=== PATIENT | female | born 1965 | race Caucasian/White ===

== ENCOUNTER 2020-10-12 06:28 | Observation (INO) ==
--- NOTE | 2020-10-12 06:41 | ERNOTE ---
<Philly Matute - Last Filed: 10/12/20 09:07> Medical Problem HPI - General Chief Complaint: General Assessment Time Seen by Provider: 10/12/20 06:28 Source: patient, EMS, RN notes reviewed, old records Exam Limitations: physical impairment - Immun/Allergies/Home Medications Immunizations: IMMUNIZATION HX Immunizations Up to Date Yes History of Influenza Vaccine No Hx Pneumococcal Vaccination No Allergies/Adverse Reactions: Allergies No Known Allergies Allergy (Verified 04/27/19 11:09) Home Medications: HOME MEDICATIONS metFORMIN HCL [Metformin HCl] 500 mg PO BID 01/06/19 [Last Taken Unknown] - History of Present History Timing: constant, getting worse Severity: moderate Modifying Factors - (Improves): Present: rest Modifying Factors - (Worsens): Present: movement Review of Systems - Review of Systems Constitutional: Absent: recent illness, fever, chills EYE: Absent: eye pain, eye discharge ENT: Absent: ear pain, nasal drainage, sore throat Respiratory: Present: shortness of breath - chronic with COPD, cough - chronic Cardiology: Absent: chest pain, palpitations Gastrointestinal/Abdominal: Present: nausea. Absent: vomiting, diarrhea, abdominal pain Genitourinary: Absent: frequency, pain, dysuria Musculoskeletal: Absent: back pain, muscle pain Neurological: Absent: anxiety, depressed Psych: Present: anxiety Medical History (Last Reviewed 10/12/20 @ 08:37 by Philly Matute) Influenza vaccination declined by patient (Acute) Onset Date: 10/15/18 Trichomoniasis (Acute) Pain (Acute) Menometrorrhagia (Chronic) Kidney stone (Acute) Heart murmur (Acute) Diabetes (Chronic) Urinary tract infection (Acute) Abnormal x-ray of pelvis (Acute) UTI (urinary tract infection) (Acute) Low back strain (Acute) Abdominal pain (Acute) Uncontrolled diabetes mellitus (Acute) Dysuria (Acute) Surgical History: Surgical History (Last Reviewed 10/12/20 @ 08:37 by Philly Matute) [place] teeth removed (Acute) 1999 History of mandibular surgery (Acute) Onset Date: ~1987 History of dilation and curettage (Acute) Onset Date: 06/27/10 History of cryosurgery (Acute) Onset Date: ~1987 cervix S/P arthroscopic surgery of right knee (Acute) Onset Date: ~1999 S/P repair of ligament of ankle (Acute) Onset Date: ~2006 H/O tubal ligation (Acute) H/O: section (Acute) Family History: Family History (Last Reviewed 10/12/20 @ 08:37 by Philly Matute) Mother Cancer Diabetes Heart murmur Arrhythmia Grandfather CVA (cerebral vascular accident) Social History: (Last Reviewed 10/12/20 @ 08:37 by Philly Matute) Social History: fci: No Marital status: Single household members: none current occupational status: employed current occupation: inpatient services rn Highest level of school completed/degree received: high school graduate Service: No Tobacco: Smoking Status: Current every day smoker Alcohol: alcohol intake: current alcohol intake frequency: a few times a week Substance Use: substance use type: does not use Dietary Habits: caffeine: Yes Exercise: Physical activity type: none Physical activity functional status: normal ROM and activity Physical Exam - Physical Exam General Appearance: Present: wd/wn, alert, no apparent distress Progress - Results and Orders Patient's Lab Results:: I have reviewed the patient's lab results. Results and Orders: Laboratory Results - last 24 hr 10/12/20 10/12/20 10/12/20 07:00 07:00 07:00 WBC 7.9 RBC 4.46 Hgb 14.7 Hct 43.5 MCV 97.5 MCH 33.0 H MCHC 33.8 RDW 12.9 Plt Count 176 MPV 8.6 Immature Gran % (Auto) 1.90 H Immature Gran # (Auto) 0.15 H Neutrophils % 61.0 Lymphocytes % 26.1 Monocytes % 8.3 Eosinophils % 1.6 Basophils % 1.1 H Nucleated RBC % 0.0 Neutrophils # 4.8 Lymphocytes # 2.07 Monocytes # 0.7 Eosinophils # 0.1 Absolute Basophils 0.1 PT 11.4 H INR (Anticoag Therapy) 1.16 H PTT (Vanessa) 25.6 Sodium 133 Plasma Sodium 135 Potassium 4.3 Chloride 99 Carbon Dioxide 29.5 Anion Gap 8.8 BUN 20 Creatinine 0.80 Est GFR (Non-Af Amer) 79 D BUN/Creatinine Ratio 25.0 H Random Glucose 226 H Calcium 8.8 Calcium Adj for Albumin 9.0 Total Bilirubin 0.5 AST 25 ALT 41 Alkaline Phosphatase 87 Total Protein 7.6 Albumin 3.3 L - Vital Signs Patient's Vital Signs:: I have reviewed the patient's vital signs. Vital Signs: Vital Signs 10/12/20 06:28 Temperature 36.3 C Pulse Rate 91 Respiratory Rate 15 Blood Pressure 194/93 H O2 Sat by Pulse Oximetry 98 - EKG EKG #1 EKG: NSR EKG read: Reviewed by me EKG Comments: old septal infarct - Progress/Reassessment Chief Complaint: General Assessment - Transfer of Care Physician Sign Out: Philly Matute Brief History: Patient with onset of left sided weakness last night. Went in to work this AM, was stumbling around, her boss sent her here to be checked out. No acute head bleed on CT scan. Receiving Physician: Romulo Arrington Pending Results: Physician/consult arrival Departure Clinical Impression: CVA (cerebrovascular accident) Qualifiers: CVA mechanism: unspecified Qualified Code(s): I63.9 - Cerebral infarction, unspecified Uncontrolled diabetes mellitus Qualifiers: Diabetes mellitus type: type 2 Glycemic state: with hyperglycemia Qualified Code(s): E11.65 - Type 2 diabetes mellitus with hyperglycemia - Departure Disposition: Still a patient Condition: Fair <Romulo Arrington - Last Filed: 10/12/20 09:37> Medical Problem HPI - Immun/Allergies/Home Medications Immunizations: IMMUNIZATION HX Immunizations Up to Date Yes History of Influenza Vaccine No Hx Pneumococcal Vaccination No Medical History (Last Reviewed 10/12/20 @ 08:37 by Philly Matute) Influenza vaccination declined by patient (Acute) Onset Date: 10/15/18 Trichomoniasis (Acute) Pain (Acute) Menometrorrhagia (Chronic) Kidney stone (Acute) Heart murmur (Acute) Diabetes (Chronic) Urinary tract infection (Acute) Abnormal x-ray of pelvis (Acute) UTI (urinary tract infection) (Acute) Low back strain (Acute) Abdominal pain (Acute) Uncontrolled diabetes mellitus (Acute) Dysuria (Acute) Surgical History: Surgical History (Last Reviewed 10/12/20 @ 08:37 by Philly Matute) [place] teeth removed (Acute) 1999 History of mandibular surgery (Acute) Onset Date: ~1987 History of dilation and curettage (Acute) Onset Date: 06/27/10 History of cryosurgery (Acute) Onset Date: ~1987 cervix S/P arthroscopic surgery of right knee (Acute) Onset Date: ~1999 S/P repair of ligament of ankle (Acute) Onset Date: ~2006 H/O tubal ligation (Acute) H/O: section (Acute) Family History: Family History (Last Reviewed 10/12/20 @ 08:37 by Philly Matute) Mother Cancer Diabetes Heart murmur Arrhythmia Grandfather CVA (cerebral vascular accident) Social History: (Last Reviewed 10/12/20 @ 08:37 by Philly Matute) Social History: fci: No Marital status: Single household members: none current occupational status: employed current occupation: inpatient services rn Highest level of school completed/degree received: high school graduate Service: No Tobacco: Smoking Status: Current every day smoker Alcohol: alcohol intake: current alcohol intake frequency: a few times a week Substance Use: substance use type: does not use Dietary Habits: caffeine: Yes Exercise: Physical activity type: none Physical activity functional status: normal ROM and activity Progress - Results and Orders Patient's Lab Results:: I have reviewed the patient's lab results. - Vital Signs Patient's Vital Signs:: I have reviewed the patient's vital signs. Vital Signs: Vital Signs 10/12/20 06:28 10/12/20 06:35 10/12/20 07:05 Temperature 36.3 C Pulse Rate 91 88 76 Respiratory Rate 15 13 16 Blood Pressure 194/93 H 194/93 H 163/75 H O2 Sat by Pulse Oximetry 98 96 94 10/12/20 08:00 10/12/20 08:30 10/12/20 09:00 Temperature Pulse Rate 71 78 71 Respiratory Rate 15 19 17 Blood Pressure 173/71 H 172/68 H 144/84 H O2 Sat by Pulse Oximetry 95 94 94 - X-Ray X-Ray #1 X-Ray: chest Interpretation: Interp. by me X-ray Comments: I personally reviewed CXR image as well as official radiology report - CT/Ultrasound CT/Ultrasound Narrative: I reviewed official radiology report for CT head. - Progress/Reassessment Progress Note-Subjective: 10/12/20 09:34 I took over the patient at am shift change. Labs and CT had returned. I spoke to the patient, her left sided weakness was improving but she still had Sx., not entirely resolved. She needs admission and stroke w/u. D/W Dr Foley who will admit. Please see Dr Matute's note for full H&P/etc. Sx starting to resolve/improve. Clinically still likely stroke. She understands need for admission.
[2020-10-12 07:14] LABS: Hematocrit 43.5 % (37.0-47.0); Hemoglobin 14.7 gm/dL (12.5-16.0); Mean Cell Volume 97.5 fl (78-100); Mean Corpuscular Hgb Conc 33.8 g/dl (32-36); Mean Platelet Volume 8.6 fl (8-12.5); Neutrophil # 4.8 K/mm3 (1.3-6.0); Platelet Count 176 K/mm3 (150-450); Red Blood Count 4.46 M/mm3 (4.2-5.4); Red Cell Distribution Width 12.9 % (11.5-14.0); White Blood Count 7.9 K/mm3 (4.0-10.5)
[2020-10-12 07:30] LABS: Albumin * 3.3 gm/dl (3.4-5.0); Anion Gap 8.8 mmol/L (6.8-13.8); Bilirubin, Total 0.5 mg/dL (0.0-1.1); Calcium * 8.8 mg/dL (7.9-10.9); Carbon Dioxide 29.5 mmol/L (24-32.6); Potassium 4.3 mmol/L (3.4-4.6); Total Protein 7.6 gm/dL (6.2-8.2)
[2020-10-12 07:39] LABS: INR 1.16 INR (0.92-1.08); Partial Thrombolplastin Time 25.6 Seconds (24-32); Prothrombin Time (Patient) 11.4 Seconds (9.1-10.7)
[2020-10-12] MEDS ORDERED: ASPIRIN 81 MG TAB.CHEW PO ONE (09:33)
[2020-10-12 10:46] LABS: Urine Bilirubin Negative (NEGATIVE); Urine Blood Negative /ul (NEGATIVE); Urine Ketone Negative (NEGATIVE); Urine Protein Negative (NEGATIVE); Urine Specific Gravity 1.015 SP.GR. (1.005-1.010); Urine Urobilinogen Normal (NORMAL); Urine pH 7.5 pH (5.0-7.0)
[2020-10-12 10:56] LABS: Urine Appearance Slightly Cloudy (CLEAR); Urine Bacteria 3+; Urine Color Yellow; Urine Nitrite Positive (NEGATIVE); Urine RBC TRACE /hpf (0-5); Urine WBC 0-5 /hpf (0-5)
[2020-10-12 11:06] LABS: Cocaine Ur Negative (NEGATIVE); Urine Barbiturate Negative (NEGATIVE); Urine Benzodiazepines Negative (NEGATIVE); Urine Opiates Negative (NEGATIVE); Urine PCP Negative (NEGATIVE); Urine THC Positive (NEGATIVE)
[2020-10-12] MEDS: CLOPIDOGREL BISULFATE 75 MG TABLET PO SCH (17:41)
--- NOTE | 2020-10-12 19:40 | HP ---
Chief Complaint - Chief Complaint Date of Service: 10/12/20 Time of Service: 19:30 Chief Complaint: Left-sided weakness, poor coordination History of Present Illness: 55-year-old female history of hypertension and diabetes was admitted to the [facility] [facility] today for suspected CVA. Patient states that the night prior to coming to the hospital she developed left-sided weakness and balance issues, had a hard time getting up from the couch and going to her bedroom. Significant right side lean according to her, states she fell. Patient said she had a hard time controlling her left arm and leg, "like they were asleep ". Patient went to bed at that point. patient woke up this morning feeling very similar to how she did the night before but decided that she needed to go to work in case have been worse happened and she needed someone to help her get to the hospital. When she got to work they noticed that she had significant left-sided weakness and was having difficulty finding her words and did not seem "like herself ". EMS was called and brought her to the hospital. While here CT scan of her head showed age-indeterminate lacunar infarcts on the right side occipital condyle extending down to involve the posterior aspect of her right basal ganglia. Patient's never had previous CVA/TIA before. Rest of her blood work was fairly benign. Patient was admitted under observation for acute CVA. When seen today patient still had some left upper and lower extremity weakness compared to right but her coronation was significant improved according to the patient. Speech came by and cleared her to have regular diet with thin liquids. PT and OT have been consulted. Currently patient feels well and is able to converse appropriately. 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 Patient has issues with balance when she stands. Patient has normal facial symmetry. Patient was given aspirin in the ER. Medical History (Last Reviewed 10/12/20 @ 11:19 by Omar Lew RN) Influenza vaccination declined by patient (Acute) Onset Date: 10/15/18 Trichomoniasis (Acute) Pain (Acute) Menometrorrhagia (Chronic) Kidney stone (Acute) Heart murmur (Acute) Diabetes (Chronic) Urinary tract infection (Acute) Abnormal x-ray of pelvis (Acute) UTI (urinary tract infection) (Acute) Low back strain (Acute) Abdominal pain (Acute) Uncontrolled diabetes mellitus (Acute) Dysuria (Acute) Surgical History: Surgical History (Last Reviewed 10/12/20 @ 11:19 by Omar Lew RN) [place] teeth removed (Acute) 1999 History of mandibular surgery (Acute) Onset Date: ~1987 History of dilation and curettage (Acute) Onset Date: 06/27/10 History of cryosurgery (Acute) Onset Date: ~1987 cervix S/P arthroscopic surgery of right knee (Acute) Onset Date: ~1999 S/P repair of ligament of ankle (Acute) Onset Date: ~2006 H/O tubal ligation (Acute) H/O: section (Acute) Family History: Family History (Last Reviewed 10/12/20 @ 11:19 by Omar Lew RN) Mother Cancer Diabetes Heart murmur Arrhythmia Grandfather CVA (cerebral vascular accident) Social History: (Last Reviewed 10/12/20 @ 11:19 by Omar Lew RN) Social History: skilled nursing: No Marital status: Single household members: none current occupational status: employed current occupation: technical delivery manager Highest level of school completed/degree received: high school graduate Service: No Tobacco: Smoking Status: Current every day smoker Alcohol: alcohol intake: current alcohol intake frequency: a few times a week Substance Use: substance use type: does not use Dietary Habits: caffeine: Yes Exercise: Physical activity type: none Physical activity functional status: normal ROM and activity Review Of Systems (GEN) - Review of Systems Generalized/Overall Review: Present: Weakness. Absent: Chills, Fever EENTM: Present: No Symptoms Reported Respiratory: Present: No Symptoms Reported Cardiac: Present: No Symptoms Reported Abdominal: Present: No Symptoms Reported Genitourinary: Present: No Symptoms Reported Musculoskeletal: Present: No Symptoms Reported Neurological: Present: Weakness. Absent: Headache, Anxiety, Numbness, Pre- existing Deficit Skin: Present: No Symptoms Reported Immunizations: IMMUNIZATION HX Immunizations Up to Date Yes History of Influenza Vaccine No Hx Pneumococcal Vaccination No Allergies/Adverse Reactions: Allergies Allergy/AdvReac Type Severity Reaction Status Date / Time No Known Allergies Allergy Verified 10/12/20 11:19 Home Medications: HOME MEDICATIONS metFORMIN HCL [Metformin HCl] 500 mg PO BID 01/06/19 [Last Taken Unknown] Atorvastatin Calcium [Lipitor] 20 mg PO DAILY 10/12/20 [Last Taken Unknown] Ibuprofen 800 mg PO BID 10/12/20 [Last Taken Unknown] Losartan Potassium 50 mg PO DAILY 10/12/20 [Last Taken Unknown] Exam - Exam Vital Signs: Vital Signs - Last Taken Temp 36.8 C 10/12/20 14:18 Pulse 67 10/12/20 14:18 Resp 12 10/12/20 14:18 BP 188/79 H 10/12/20 14:18 Pulse Ox 93 10/12/20 14:18 Constitutional: Present: Alert, Oriented x3, Cooperative, No distress ENT Exam: Present: normal ENT inspection, hearing grossly normal Eye Exam: bilateral eye: normal inspection, PERRL, EOMI Neck: Present: non-tender, supple Respiratory: Present: lungs clear, normal breath sounds, no respiratory distress Cardiovascular/Chest: Present: regular rate, rhythm, no murmur Peripheral Pulses: dorsalis-pedis (R): 2+, dorsalis-pedis (L): 2+ Abdomen: Present: Normal bowel sounds, soft, nontender, nondistended Skin Exam: Present: normal color, warm/dry Neurologic: Present: actuarial mathematician II-XII nml as tested, motor weakness - Week with left upper extremity strength, left commercial real estate paralegal strength, left lower extremity strength. Absent: facial droop, sensory deficit, dizzy/light-headedness Appearance: Present: appropriate insight, no memory impairment, disheveled Eye contact: Present: cooperative, good eye contact Thoughts: Present: normal thought pattern, normal mood /affect Diagnostic Studies: Abnormal Lab Results 10/12/20 10/12/20 10/12/20 Range/Units 07:00 07:00 07:00 MCH 33.0 H (27-31) pg Immature Gran % (Auto) 1.90 H (0.001-0.429) % Immature Gran # (Auto) 0.15 H (0.000-0.0310) K/mm3 Basophils % 1.1 H (0.0-1.0) % ESR 32 H (0-15) mm/hr PT (9.1-10.7) Seconds INR (Anticoag Therapy) (0.92-1.08) INR BUN/Creatinine Ratio 25.0 H (9.0-21.6) Random Glucose 226 H (70-110) mg/dL Albumin 3.3 L (3.4-5.0) gm/dl Urine Nitrate (NEGATIVE) Urine Bacteria (NONE) Urine Marijuana (THC) (NEGATIVE) 10/12/20 10/12/20 10/12/20 Range/Units 07:00 10:30 10:30 MCH (27-31) pg Immature Gran % (Auto) (0.001-0.429) % Immature Gran # (Auto) (0.000-0.0310) K/mm3 Basophils % (0.0-1.0) % ESR (0-15) mm/hr PT 11.4 H (9.1-10.7) Seconds INR (Anticoag Therapy) 1.16 H (0.92-1.08) INR BUN/Creatinine Ratio (9.0-21.6) Random Glucose (70-110) mg/dL Albumin (3.4-5.0) gm/dl Urine Nitrate Positive H (NEGATIVE) Urine Bacteria 3+ H (NONE) Urine Marijuana (THC) Positive H (NEGATIVE) Laboratory Results WBC 7.9 K/mm3 (4.0-10.5) 10/12/20 07:00 RBC 4.46 M/mm3 (4.2-5.4) 10/12/20 07:00 Hgb 14.7 gm/dL (12.5-16.0) 10/12/20 07:00 Hct 43.5 % (37.0-47.0) 10/12/20 07:00 MCV 97.5 fl (78-100) 10/12/20 07:00 MCH 33.0 pg (27-31) H 10/12/20 07:00 MCHC 33.8 g/dl (32-36) 10/12/20 07:00 RDW 12.9 % (11.5-14.0) 10/12/20 07:00 Plt Count 176 K/mm3 (150-450) 10/12/20 07:00 MPV 8.6 fl (8-12.5) 10/12/20 07:00 Immature Gran % (Auto) 1.90 % (0.001-0.429) H 10/12/20 07:00 Immature Gran # (Auto) 0.15 K/mm3 (0.000-0.0310) H 10/12/20 07:00 Neutrophils % 61.0 % (42-75.0) 10/12/20 07:00 Lymphocytes % 26.1 % (20-51) 10/12/20 07:00 Monocytes % 8.3 % (0.0-9) 10/12/20 07:00 Eosinophils % 1.6 % (0.0-3.0) 10/12/20 07:00 Basophils % 1.1 % (0.0-1.0) H 10/12/20 07:00 Nucleated RBC % 0.0 k/mm3 (0-1) 10/12/20 07:00 Neutrophils # 4.8 K/mm3 (1.3-6.0) 10/12/20 07:00 Lymphocytes # 2.07 k/mm3 (1.5-3.5) 10/12/20 07:00 Monocytes # 0.7 k/mm3 (0.0-1.0) 10/12/20 07:00 Eosinophils # 0.1 k/mm3 (0.0-0.7) 10/12/20 07:00 Absolute Basophils 0.1 k/mm3 (0.0-0.1) 10/12/20 07:00 ESR 32 mm/hr (0-15) H 10/12/20 07:00 PT 11.4 Seconds (9.1-10.7) H 10/12/20 07:00 INR (Anticoag Therapy) 1.16 INR (0.92-1.08) H 10/12/20 07:00 PTT (Sully) 25.6 Seconds (24-32) 10/12/20 07:00 Sodium 133 mmol/L (132-142) 10/12/20 07:00 Plasma Sodium 135 mmol/L (130-142) 10/12/20 07:00 Potassium 4.3 mmol/L (3.4-4.6) 10/12/20 07:00 Chloride 99 mmol/L (97-106) 10/12/20 07:00 Carbon Dioxide 29.5 mmol/L (24-32.6) 10/12/20 07:00 Anion Gap 8.8 mmol/L (6.8-13.8) 10/12/20 07:00 BUN 20 mg/dL (3-23) 10/12/20 07:00 Creatinine 0.80 mg/dL (0.4-1.4) 10/12/20 07:00 Est GFR (Non-Af Amer) 79 mL/min (60-130) D 10/12/20 07:00 BUN/Creatinine Ratio 25.0 (9.0-21.6) H 10/12/20 07:00 Random Glucose 226 mg/dL (70-110) H 10/12/20 07:00 Calcium 8.8 mg/dL (7.9-10.9) 10/12/20 07:00 Calcium Adj for Albumin 9.0 mg/dL (8.4-10.2) 10/12/20 07:00 Total Bilirubin 0.5 mg/dL (0.0-1.1) 10/12/20 07:00 AST 25 U/L (0-48) 10/12/20 07:00 ALT 41 U/L (19-67) 10/12/20 07:00 Alkaline Phosphatase 87 U/L (50-170) 10/12/20 07:00 Total Protein 7.6 gm/dL (6.2-8.2) 10/12/20 07:00 Albumin 3.3 gm/dl (3.4-5.0) L 10/12/20 07:00 Urine Color Yellow 10/12/20 10:30 Urine Appearance Slightly cloudy (CLEAR) 10/12/20 10:30 Urine pH 7.5 pH (5.0-7.0) 10/12/20 10:30 Ur Specific Richardson 1.015 SP.GR. (1.005-1.010) 10/12/20 10:30 Urine Protein Negative mg/dL (NEGATIVE) 10/12/20 10:30 Urine Glucose (UA) Negative mg/dL (NEGATIVE) 10/12/20 10:30 Urine Ketones Negative mg/dL (NEGATIVE) 10/12/20 10:30 Urine Blood Negative /ul (NEGATIVE) 10/12/20 10:30 Urine Nitrate Positive (NEGATIVE) H 10/12/20 10:30 Urine Bilirubin Negative mg/dl (NEGATIVE) 10/12/20 10:30 Urine Urobilinogen Normal EU/dl (NORMAL) 10/12/20 10:30 Ur Leukocyte Esterase Negative /ul (NEGATIVE) 10/12/20 10:30 Urine RBC Trace /hpf (0-5) 10/12/20 10:30 Urine WBC 0-5 /hpf (0-5) 10/12/20 10:30 Ur Epithelial Cells 0-5 /hpf (0-5) 10/12/20 10:30 Urine Bacteria 3+ (NONE) H 10/12/20 10:30 Urine Culture Comments Culture to follow 10/12/20 10:30 Urine Opiates Screen Negative (NEGATIVE) 10/12/20 10:30 Barbiturate Screen Negative (NEGATIVE) 10/12/20 10:30 Ur Phencyclidine Scrn Negative (NEGATIVE) 10/12/20 10:30 Urine Amphetamine Negative (NEGATIVE) 10/12/20 10:30 U Benzodiazepines Scrn Negative (NEGATIVE) 10/12/20 10:30 Urine Cocaine Screen Negative (NEGATIVE) 10/12/20 10:30 Urine Marijuana (THC) Positive (NEGATIVE) H 10/12/20 10:30 SARS-CoV-2 (PCR) Not detected (NotDetected) 10/12/20 Unknown Assessment/Plan - Narrative Narrative: 55-year-old female with history of diabetes and hypertension admitted to the hospital under observation for suspected CVA. CT scan of head showed possible lacunar infarct on the right that extended down into her right basal ganglia. Patient was started on high-dose atorvastatin, Plavix. Patient will be on dual antiplatelet therapy for the time being. Patient's exam much better than initial presentation and so likely patient can do outpatient work-up of carotids and echocardiogram but will reevaluate patient in the morning to determine what is best course for her. Holding her blood pressure medications to allow for permissive hypertension at this time. Will restart at 48 hours as long as no worsening symptoms. Consider MRI of her brain if she has worsening symptoms but do not think is warranted at this time. As far as her diabetes go, patient is currently on sliding scale insulin with Accu-Cheks q. ACHS. Hypertensionallowing for permissive hypertension. Likely discharge home tomorrow as long as she continues to improve on dual antiplatelet therapy, high-dose statin, with follow-up with her PCP in the next week. Will determine treatment plan tomorrow after reevaluation. Nurse to call with questions or concerns. - Assessment/Plan (1) Hypertension Problem: Acute (2) CVA (cerebrovascular accident) Problem: Acute Qualifiers: CVA mechanism: unspecified Qualified Code(s): I63.9 - Cerebral infarction, unspecified (3) Diabetes Problem: Chronic
[2020-10-12] MEDS: INSULIN LISPRO 100 UNITS/ML VIAL SC SCH (20:43)
[2020-10-12] MEDS ORDERED: ACETAMINOPHEN 500 MG TABLET PO PRN (20:54)
[2020-10-12] MEDS ORDERED: MORPHINE SULFATE 2 MG/ML DISP.SYRIN IV ONE (20:55)
[2020-10-12] MEDS ORDERED: ROSUVASTATIN CALCIUM 20 MG TABLET PO SCH (21:00)
[2020-10-13] MEDS: INSULIN LISPRO 100 UNITS/ML VIAL SC SCH ×2 (07:24→12:06)
[2020-10-13] MEDS: CLOPIDOGREL BISULFATE 75 MG TABLET PO SCH (08:48)
[2020-10-13] MEDS ORDERED: ASPIRIN 325 MG TABLET.DR PO SCH (09:00)
[2020-10-13] MEDS ORDERED: LOSARTAN POTASSIUM 50 MG TABLET PO SCH (10:45)
--- NOTE | 2020-10-13 12:12 | DS ---
(1) Hypertension Problem: Acute (2) CVA (cerebrovascular accident) Problem: Acute Qualifiers: CVA mechanism: unspecified Qualified Code(s): I63.9 - Cerebral infarction, unspecified (3) Diabetes Problem: Chronic Hospital Course: 55-year-old female with history of diabetes and hypertension presented to the ER yesterday morning after she continued to have worsening left-sided weakness. Patient states that her symptoms had started the night before around 9 PM. Patient went to bed and woke up feeling the same way. She was off balance and felt weak on the left side. She went to work where her fellow employees were concerned and called EMS. She was taken to the hospital where she was evaluated for possible CVA/stroke work-up. CT of her head showed her to have a age-in determinate lacunar changes in her right suboccipital condyle with white matter extending down to involve the posterior aspect of her right basal ganglia. No hemorrhage seen. Patient improved significantly from day of admission to day of discharge with her weakness. Patient was evaluated by physical therapy on day of admission who had initially recommended inpatient rehab. Reevaluation the day of discharge showed her to be safe to ambulate with walker which included stair maneuvering. It was determined that patient was safe to be discharged home. Patient also was evaluated by speech therapy who okayed her to have regular diet with thin liquids. Patient has significant support system with friends and family who will stay with her and help her while she works with this process. Patient did not want to go to inpatient therapy which is her decision. Patient also did not want brain MRI or further work-up of her stroke here in the hospital but wishes to do this in outpatient setting. Due to her significant improvement in neurological deficits, I think this is appropriate. Patient will be discharged home on statin medicine, Plavix, full-strength aspirin. Patient will be advised to follow-up with her PCP in the next week to start the outpatient work-up process for stroke including carotid Doppler ultrasounds, transthoracic echo, and possible brain MRI if neurological symptoms worsen. While here she was allowed to have permissive hypertension for the first 36 hours. Blood pressure got as high as 192/80. At this point patient was past the 36-hour imelda and was restarted on half her losartan dose at 25 mg. Blood pressure upon discharge was 182/80. We will advised her to restart her full dose tomorrow at 50 mg. We will send in the atorvastatin, Plavix, and aspirin to her pharmacy. Recommend she follow-up with her PCP early next week (the next 3 to 5 days). Her lab work was fairly unremarkable aside from positive marijuana in her tox screen. Procedures Performed: none Results and Findings: Pending Mircobiology Results 10/12/20 10:30 Urine,Catheterized Urine Culture - Preliminary Gram Negative Bacilli Gram Negative Bacilli#2 Lab Pending Results 10/12/20 07:00: WBC 7.9, RBC 4.46, Hgb 14.7, Hct 43.5, MCV 97.5, MCH 33.0 H, MCHC 33.8, RDW 12.9, Plt Count 176, MPV 8.6, Immature Gran % (Auto) 1.90 H, Immature Gran # (Auto) 0.15 H, Neutrophils % 61.0, Lymphocytes % 26.1, Monocytes % 8.3, Eosinophils % 1.6, Basophils % 1.1 H, Nucleated RBC % 0.0, Neutrophils # 4.8, Lymphocytes # 2.07, Monocytes # 0.7, Eosinophils # 0.1, Absolute Basophils 0.1 10/12/20 07:00: Sodium 133, Plasma Sodium 135, Potassium 4.3, Chloride 99, Carbon Dioxide 29.5, Anion Gap 8.8, BUN 20, Creatinine 0.80, Est GFR (Non-Af Amer) 79 D, BUN/Creatinine Ratio 25.0 H, Random Glucose 226 H, Calcium 8.8, Calcium Adj for Albumin 9.0, Total Bilirubin 0.5, AST 25, ALT 41, Alkaline Phosphatase 87, Total Protein 7.6, Albumin 3.3 L 10/12/20 07:00: ESR 32 H 10/12/20 07:00: PT 11.4 H, INR (Anticoag Therapy) 1.16 H, PTT (Vanessa) 25.6 10/12/20 10:30: Urine Color Yellow, Urine Appearance Slightly cloudy, Urine pH 7.5, Ur Specific [place] 1.015, Urine Protein Negative, Urine Glucose (UA) Negative, Urine Ketones Negative, Urine Blood Negative, Urine Nitrate Positive H, Urine Bilirubin Negative, Urine Urobilinogen Normal, Ur Leukocyte Esterase Negative, Urine RBC Trace, Urine WBC 0-5, Ur Epithelial Cells 0-5, Urine Bacteria 3+ H, Urine Culture Comments Culture to follow 10/12/20 10:30: Urine Opiates Screen Negative, Barbiturate Screen Negative, Ur Phencyclidine Scrn Negative, Urine Amphetamine Negative, U Benzodiazepines Scrn Negative, Urine Cocaine Screen Negative, Urine Marijuana (THC) Positive H 10/12/20 : SARS-CoV-2 (PCR) Not detected Discharge Location: Home Disposition: Home self-care Condition: Fair Discharge Activity: Activity as tolerated Discharge Diet: Consistent carbs Referrals: Jv Brunson MD [Non Staff Physicians] - One Week Prescriptions (Any new or edited meds): Aspirin [Aspirin Enteric Coated] 325 mg PO DAILY #90 tablet. Transmission Status: Pending to [place], [place] Atorvastatin Calcium [Lipitor] 40 mg PO DAILY #90 tab Transmission Status: Pending to [place], [place] Clopidogrel Bisulfate [Plavix] 75 mg PO DAILY #90 tab Transmission Status: Pending to [place], [place] Complete Home Medications List: Complete Home Medication List: metFORMIN HCL [Metformin HCl] 500 mg PO BID 01/06/19 Atorvastatin Calcium [Lipitor] 20 mg PO DAILY 10/12/20 Losartan Potassium 50 mg PO DAILY 10/12/20 Acetaminophen [Tylenol] 1,000 mg PO Q6H PRN tablet 10/13/20 Aspirin [Aspirin Enteric Coated] 325 mg PO DAILY #90 tablet. 10/13/20 Atorvastatin Calcium [Lipitor] 40 mg PO DAILY #90 tab 10/13/20 Clopidogrel Bisulfate [Plavix] 75 mg PO DAILY #90 tab 10/13/20 Losartan Potassium [Cozaar] 25 mg PO DAILY tablet 10/13/20 Forms: Patient Portal Registration
[2020-10-13 13:51] VITALS: BP 177/71
== END 2020-10-13 14:10 | disposition home or self-care (01) ==
LOC: ER 06:28 → MS 06:28
PROVIDERS: ADMIT Family Medicine; ATTEND Family Medicine
DX: R53.1 Weakness; I10 Essential (primary) hypertension; Z79.84 Long term (current) use of oral hypoglycemic drugs; Z72.0 Tobacco use; E11.65 Type 2 diabetes mellitus with hyperglycemia; I63.9 Cerebral infarction, unspecified